=== PATIENT | female | born 1990 | race Caucasian/White ===

== ENCOUNTER 2016-05-30 21:59 | Emergency (ER) | payer BC, MEDICAID ==
[2016-05-30 22:14] VITALS: TEMP 98.5; BMI 35.7
[2016-05-30] MEDS ORDERED: KETOROLAC TROMETHAMINE 60 MG/2 ML SDV IM ONE (22:23)
[2016-05-30 22:37] LABS: LEUKOCYTES/URINE NEG (NEGATIVE); NITRITE/URINE NEG (NEGATIVE); URINE OCCULT BLOOD NEG (NEG/TRACE); WBC/URINE 0-2 (0-5)
--- NOTE | 2016-05-30 22:39 | EDPRACDOC ---
- General Information Chief Complaint: Chest Wall Pain Stated Complaint: CHEST PAIN Time Seen by Provider: 05/30/16 22:20 Information Source: Patient Mode of Arrival: Car Home Medications: Home Medications Hydrocodone/Acetaminophen [Vicodin 5-300 mg Tablet] 1 - 2 tabs PO Q6H PRN #30 tablet 07/19/13 Ibuprofen Tablet [Motrin] 800 mg PO TID #30 tab 07/19/13 Ketorolac Tromethamine [Toradol] 10 mg PO Q6H PRN #20 tab 05/30/16 Omeprazole [Prilosec] 20 mg PO DAILY #90 cap 05/30/16 Allergies/Adverse Reactions: Allergies Allergy/AdvReac Type Severity Reaction Status Date / Time No Known Allergies Allergy Verified 05/30/16 22:16 - History of Present Illness Onset: [employer] HPI: PT PRESENTS WITH SUBSTERNAL CHEST PAIN THAT SHE STATES BEGAN EARLIER. STATES THIS IS A SHARP PAIN, NON-RADIATING. DENIES NAUSEA, VOMITING, CHILLS OR FEVER. DENIES DIAPHORESIS. NO CARDIAC HISTORY, NO PAST FAMILY HISTORY. THE PATIENT IS NOT A SMOKER. STATES THE PAIN IS WORSE WITH DEEP BREATH AND PALPATION. Chest Pain Location: Reports: Substernal Pain Radiation: Reports: None Symptoms Occur: Reports: Suddenly Cardiac Risk Factors: Reports: None Cardiac History of: Reports: None PE Risk Factors: Reports: None Medications within 24 Hours: Reports: None Prehospital Care: Reports: None Pain Came On: Reports: Suddenly Pain Status: Resolved Pain Description: Reports: Sharp Pain Severity: Mild Pain Worsens With: Reports: Breathing Pain Improves With: Reports: Nothing Associated Signs and Symptoms: Reports: None ED Past Medical History - History Reviewed Yes Nurses notes reviewed and agree except as marked - Patient Medical History Psychological History: Denies: Depression Systemic History: Denies: Cancer - Family Medical History Reports: Hypertension (uncles), Diabetes (dad). Denies: Cancer, Stroke, Cardiac Disorders - Social Medical History Smoking Status: Never smoker EDM Review of Systems - Review of Systems ROS Negative Except as Marked: Yes All systems reviewed and were negative except as marked - Physical Exam Constitutional: No apparent distress, Alert Oriented to: Time, Person, Place Last recorded Vital Signs: Last Vital Signs Temp 98.5 F 05/30/16 22:10 Pulse 71 05/30/16 22:10 Resp 20 05/30/16 22:10 BP 139/84 05/30/16 22:10 Pulse Ox 99 05/30/16 22:10 Oxygen Pulse Oxygen Saturation 99 O2 Device Room Air Oxygen Flow Rate Fraction of Inspired Oxygen ( FIO2) - HEENT Head: Normal ( normocephalic) Eye Exam: Normal (PERRL, EOMI, Sclera white) Oropharynx: Normal (Pharynx:Moist without exudate,Gums-no swelling) Tympanic Membrane: Normal Nose: No Symptoms Reported (septum midline) Neck: Normal (FROM, trachea at midline) - Respiratory/Cardiovascular Respiratory: Normal - CTA (BBS clear to auscultation without adventitious sounds ) Cardiovascular: Normal (RRR without murmur, gallop or rub) - GI Auscultation: Normal (NABS) Palpation: Normal (Soft,No rebound or guarding, non distended) Tenderness: Non tender Simmons's Sign: Negative Rectal Exam: Deferred - Musculoskeletal Back: Normal (Non-Tender) Extremities: Normal (Normal tone, Pulses 2+ No cyanosis or edema, FROM) - Integumentary Skin: Normal, Warm, Dry Lymphatics: Normal (no adenopathy) - Neurologic Memory Impaired: Normal Motor Function: Normal (Normal tone, Pulses 2+ No cyanosis or edema, FROM) Cranial Nerve: Normal (CN II-X11 intact sensation, strength 5/5) Cerebellar: Normal Mood Description: Normal Perception: Normal ED Chest Pain Exam - Respiratory/Cardiovascular Respiratory: Normal - CTA Cardiovascular/Chest: Normal Radial Pulse: Normal Femoral Pulse: Normal Pedal Pulse: Normal Carotid Arteries: Normal Edema: negative: 1+, 2+, 3+, 4+, 5, 6 Chest Palpation: Tender, Reproduces Pain - Differential Diagnosis Costochondritis - Action Patient received Aspirin within last 24 hours?: No ASA given in the ED: No Patient received Beta Holden within last 24hrs: No - Re-evaluation Re-evaluation 1 Re-evaluation Time: 22:51 (PT STATES THE PAIN IS STILL PRESENT AND NOT ANY BETTER. WILL CONTINUE TO MONITOR) - Results Urine Test Neg (NEGATIVE) 05/30/16 22:25 Lab Results 05/30/16 22:25 Urine Test Neg Laboratory Results - last 24 hr 05/30/16 22:25 Urine Test Neg - EKG EKG #1 EKG Time: 22:22 -: Yes EKG interpreted by me Rate: bpm: 70 Stuart: Normal Rhythm: NSR Block: None Hypertrophy: None ST: Normal Decision Time to Discharge: 23:23 - Departure Disposition: Home Condition: Stable Final Diagnosis: Gastroesophageal reflux disease Instructions: Gastroesophageal Reflux Disease (ED) Education/Counseling Given To: Patient Education/Counseling Given Regarding: Diagnosis, Treatment, Prognosis, Follow Up Referrals: Brett Bello II, MD [Staff Physician] - One Week Prescriptions: Ketorolac Tromethamine [Toradol] 10 mg PO Q6H PRN #20 tab PRN Reason: Pain Omeprazole [Prilosec] 20 mg PO DAILY #90 cap Additional Instructions: FOLLOW UP WITH PCP NEXT WEEK. RETURN TO THE ED FOR WORSENING SYMPTOMS OR CONCERNS
--- NOTE | 2016-05-30 22:43 | DIRPT ---
CLINICAL DATA: Left-sided chest pain tonight. EXAM: CHEST 2 VIEW COMPARISON: 06/05/2011 FINDINGS: The heart size and mediastinal contours are within normal limits. Both lungs are clear. No pleural effusion or pneumothorax. The visualized skeletal structures are unremarkable. IMPRESSION: Normal chest radiographs. Electronically Signed By: Geovany Enriquez M.D. On: 05/30/2016 22:40
[2016-05-30] MEDS ORDERED: GI COCKTAIL 30 ML DOSE PO ONE (22:50)
[2016-05-30] MEDS ORDERED: PREDNISONE 20 MG TAB PO ONE (22:50)
[2016-05-31 00:01] VITALS: BP 125/81; PULSE 77
== END 2016-05-30 23:58 | disposition home or self-care (01) ==
LOC: ED 21:59
DX: K21.9 Gastro-esophageal reflux disease without esophagitis (principal)
CPT/HCPCS: 71020; 81001; 81025; 93005; 96372; 99283; J1885; J3490